=== PATIENT | male | born 1965 | race Caucasian/White ===

== ENCOUNTER 2016-10-16 01:04 | Emergency (ER) | payer OTHER ==
[~2016-10-16] VITALS: Ht 182.8 cm; Wt 113.4 kg
[2016-10-16 01:11] VITALS: BP 171/119
[2016-10-16 01:38] LABS: BASO % 0.4 % (0.0-1.0); EOS % 0.4 % (1.0-4.0); HEMATOCRIT 50.5 % (42.0-52.0); HEMOGLOBIN 17.7 g/dl (14.0-18.0); LYMPH # 2.1 10*3/uL (1.3-4.4); MEAN CELL VOLUME 89.9 fl (80.0-94.0); MEAN CORPUSCULAR HGB 31.5 pg (27.0-31.0); MEAN PLATELET VOLUME 11.1 fl (9.6-12.3); MONO # 0.5 10*3/uL (0.1-1.0); MONO % 7.2 % (3.0-9.0); NEUT # 4.7 10*3/uL (2.3-7.9); NEUT % 63.7 % (47.0-73.0); PLATELET COUNT AUTOMATED 82 10*3/uL (130-400); RED BLOOD COUNT 5.62 10*6/uL (4.50-5.90); RED CELL DISTRI WIDTH 13.6 % (0-14.5); WHITE BLOOD COUNT 7.4 10*3/uL (4.8-10.8)
[2016-10-16 01:49] LABS: ACT PARTIAL THROMBO TIME 26.3 SECONDS (20.8-31.5)
[2016-10-16 02:01] LABS: ALBUMIN 3.8 gm/dl (3.1-4.5); ALKALINE PHOSPHATASE 127 U/L (45-117); BUN 7 mg/dl (7-24); CHLORIDE 103 mmol/L (98-107); CREATININE 1.17 mg/dL (0.70-1.30); LIPASE 430 U/L (73-393); MAGNESIUM 2.3 mg/dL (1.5-2.1); POTASSIUM 3.9 mmol/L (3.5-5.1); SGOT/AST 257 IU/L (3-35); SGPT/ALT 286 U/L (12-78); SODIUM 135 mmol/L (136-145); TOTAL PROTEIN 8.4 gm/dL (6.4-8.2)
[2016-10-16 02:02] LABS: TROPONIN I < 0.015 ng/ml (<0.045)
== END 2016-10-16 03:18 | disposition admitted as inpatient to this hospital (09) ==
LOC: ED 01:04 → EDHOLD 02:16 → ED 02:16
PROVIDERS: Student in an Organized Health Care Education/Training Program
DX: F10.129 Alcohol abuse with intoxication, unspecified (principal); F32.9 Major depressive disorder, single episode, unspecified; F17.200 Nicotine dependence, unspecified, uncomplicated; Z88.8 Allergy status to other drugs, medicaments and biological substances

== ENCOUNTER 2016-10-16 02:21 | Inpatient (IN) | payer OTHER ==
[~2016-10-16] VITALS: Ht 182.9 cm; Wt 116.4 kg
[2016-10-16] VITALS (7 sets, daily range): BP systolic 114–153; BP diastolic 77–100
--- NOTE | ~2016-10-16 | PR ---
[place], [place] PROGRESS NOTE NAME: NATHALY CHOWDARY UNIT #: [id number] ROOM: 523 DOCTOR: REMI DOE MD BIRTHDATE: [birth year] DOS: 10/17/2016 REASON FOR VISIT: Atrial fibrillation. HISTORY OF PRESENT ILLNESS: The patient is alert, oriented. Denies any chest pain or shortness of breath. No palpitation, no dizziness. No fever or chills. No PND or orthopnea. No nausea, vomiting, diarrhea. No neurologic symptoms. No genitourinary symptoms. REVIEW OF SYSTEMS: Review of 8 systems negative except as mentioned above. RHYTHM STRIPS: The patient in atrial fibrillation with controlled ventricular rate. PHYSICAL EXAMINATION: VITAL SIGNS: Blood pressure 136/84, pulse 80, respiratory rate 14. GENERAL: Alert, comfortable, in no acute distress. HEENT: Pupils are round and equal. No jaundice. Tongue was moist and pharynx was clear. NECK: Supple. No distended neck veins. No carotid bruits. CHEST: Symmetrical, nontender. LUNGS: Clear to auscultation bilaterally. HEART: Irregularly irregular. No S3. Grade 1/6 systolic murmur. ABDOMEN: Benign, nontender. Bowel sounds normal. EXTREMITIES: Showed no edema. Distal pulses are palpable. SKIN: Warm and dry. No cyanosis, no clubbing. NEUROLOGIC: The patient is alert, oriented. No focal neurologic deficit. RECTAL: Deferred. GENITOURINARY: Deferred. MEDICATIONS AND ALLERGIES: Reviewed. IMPRESSION: 1. Atrial fibrillation, rate control, the patient is high risk for bleeding at this time. 2. Hypertension, stable. 3. Mild valvular heart disease. 4. Tobacco use. The patient counseled to quit smoking. 5. Alcohol use. The patient counseled to quit drinking. RECOMMENDATIONS: 1. Blood pressure and heart rate are stable. 2. Continue current medications. 3. He can be transferred from ICU from the cardiac standpoint. 4. No further cardiac testing at this time. The 2D echo is pending at this time. [place], [place] PROGRESS NOTE NAME: NATHALY CHOWDARY UNIT #: [id number] ROOM: 523 DOCTOR: REMI DOE MD BIRTHDATE: [birth year] REMI DOE MD CM:CLARISSA [id number] REMI DOE MD 10/18/16 1416 interface
--- NOTE | ~2016-10-16 | PR ---
[place], [place] PROGRESS NOTE NAME: NATHALY CHOWDARY UNIT #: [id number] ROOM: 523 DOCTOR: REMI DOE MD BIRTHDATE: [birth year] DOS: 10/18/2016 CARDIOLOGY FOLLOWUP VISIT NOTE REASON FOR VISIT: Atrial fibrillation. SUBJECTIVE: The patient is alert. Denies any chest pain, no dizziness, no PND. He slept good last night. No orthopnea, no fever, no cough. REVIEW OF SYSTEMS: Review of the 8 systems negative except as mentioned above. RHYTHM STRIPS: Patient was not on a monitor bed. PHYSICAL EXAMINATION: VITAL SIGNS: Blood pressure 130/55, pulse 78, respiratory rate 20. GENERAL: Alert, comfortable, in no acute distress. HEENT: Pupils are round and equal. No jaundice. NECK: Supple. No distended neck veins, no carotid bruit. CHEST: Symmetrical, nontender. LUNGS: Clear to auscultation bilaterally. HEART: Irregularly irregular. ABDOMEN: Benign, nontender. Bowel sounds normal. EXTREMITIES: Showed trace edema. SKIN: Warm and dry. No cyanosis, no clubbing. NEUROLOGIC: The patient is alert, oriented. No focal neurologic deficit. RECTAL: Deferred. GENITOURINARY: Deferred. IMPRESSION: 1. Paroxysmal atrial fibrillation, controlled ventricular rate, CHADS2-VASc score of 1, high risk of bleeding. 2. Alcohol use. The patient counseled to quit smoking. 3. Obesity. The patient counseled for diet, exercise and weight loss. RECOMMENDATIONS: 1. Continue current medications. 2. Cardiology will see as needed. 3. There is no family at bedside at the time of my examination. [place], [place] PROGRESS NOTE NAME: NATHALY CHOWDARY UNIT #: [id number] ROOM: 523 DOCTOR: REMI DOE MD BIRTHDATE: [birth year] REMI DOE MD CM:PNTRANS [id number] REMI DOE MD 10/18/16 2129 interface
--- NOTE | ~2016-10-16 | CON ---
[place], [place] REPORT OF CONSULTATION NAME: NATHALY CHOWDARY UNIT #: [id number] ROOM: 523 DOCTOR: FAY FORD BIRTHDATE: [birth year] DOS: 10/17/2016 HISTORY OF PRESENT ILLNESS: This is a 51-year-old male who presented to [facility] from home with his sister. He had consumed a large amount of alcohol that evening, has history of alcoholism. Drinks approximately a 6-pack of 12-ounce beers every evening. He noted chest pains, tremors, hiccups, was admitted for alcoholism and to rule out anything other medical as far as an ME. PAST MEDICAL HISTORY: Alcoholism, anxiety, hypertension, major depressive disorder, PTSD, tobacco abuse, AFib. MENTAL STATUS: He is alert and oriented to person, place, approximate time. Mood is little bit depressed. Affect appropriate. No overt signs of auditory or visual hallucinations, delusions, paranoia, payton or hypomania. The patient states that approximately 5 months ago his psychiatrist cut him off his Cymbalta and his Klonopin, but he could not tell me why. He stated that he felt better from a depression standpoint on the Cymbalta and that he told the nurses last night that he took 60 mg, he told me he took 120 mg, which is above the recommended dosage. I did start the Cymbalta back currently at 30 mg. I added at bedtime, it is my preference; but he prefers a.m. dosing, so I will switch it to that. The plan would be then if he tolerates it over the next week, we can increase it to 60. He asked me for Klonopin and Ativan. I advised him, no not at this time. He says he takes it for PTSD. Current research shows that benzos are not long-term choice for PTSD. It actually locks them into numbness and does not help them deal with their emotions so associated with this. I did ask who prescribed this, [facility]. I advised him that I would be reaching out to them to get confrontation of the medications, and at that point in time, he switched to a different doctor's name, I would be reaching out to him, he stated that he is not really sure who prescribed it for him, so there is a little bit concern with that, but I will be happy to give him the benefit of doubt to see if we can clarify what is going on. I did ask the nurses run a ____ for me last night and they did state that the last time he had this medication filled was 5 months ago. FINAL DIAGNOSIS: I am going to go with major depressive disorder at this point in time, maybe generalized anxiety. PLAN: I started him on Cymbalta last night at 30 mg at bedtime. I will change that to q.a.m. This will help with depression and anxiety. As long as the patient tolerates it, we can titrate this up to 60 mg. I do believe he needs to get into some type of program as far as with his alcohol abuse, I think he is numbing himself and not dealing with his issues, which is causing his depression and his anxiety to be even worse, some cognitive behavioral therapy would probably benefit him if he would participate. [place], [place] REPORT OF CONSULTATION NAME: YORDYILIRNATHALY UNIT #: [id number] ROOM: 523 DOCTOR: FAY FORD BIRTHDATE: [birth year] FREDDY FORD CNP CM:CONSTR:REPORT OF CONSULTATION 1121 10/17/16 2136 interface
--- NOTE | ~2016-10-16 | PR ---
[place], [place] PROGRESS NOTE NAME: NATHALY CHOWDARY UNIT #: [id number] ROOM: 523 DOCTOR: REMI DOE MD BIRTHDATE: [birth year] DOS: 10/19/2016 REASON FOR VISIT: Atrial fibrillation. HISTORY OF PRESENT ILLNESS: The patient is feeling better. Denies any chest pain, dizziness or palpitations. Did not sleep good last night; hence, appears little bit tired. He is anticipating going home today. Denies any palpitations. No PND, no orthopnea, no cough, no fever and chills. REVIEW OF SYSTEMS: Review of the 8 systems negative except as mentioned above. RHYTHM STRIPS: The patient had atrial fibrillation, controlled ventricular rate. PHYSICAL EXAMINATION: VITAL SIGNS: Blood pressure 91/65, pulse 69, respiratory rate 20. GENERAL: Alert, comfortable, in no acute distress. HEENT: Pupils round, equal. No jaundice. Tongue was moist and pharynx was clear. NECK: Supple, no distended neck veins, no carotid bruit. CHEST: Symmetrical, nontender. LUNGS: Clear to auscultation bilaterally. HEART: Irregularly irregular. ABDOMEN: Obese, nontender. Bowel sounds normal. EXTREMITIES: Showed trace edema. Distal pulses are palpable. SKIN: Warm and dry. No cyanosis, no clubbing. NEUROLOGIC: The patient is alert, oriented. No focal neurologic deficit. RECTAL: Deferred. Medications and labs reviewed as available. IMPRESSION: 1. Paroxysmal atrial fibrillation, controlled ventricular rate. The patient is high risk for long-term anticoagulation at this time due to his alcohol use. 2. Tobacco smoking. 3. Alcohol abuse. 4. Non-morbid obesity. RECOMMENDATIONS: 1. Continue current medications. 2. Watch his heart rate and blood pressures. 3. He is anticipating discharge today and we will follow him in our cardiology clinic in 2-4 weeks. 4. Risk factor modification to quit smoking, diet, exercise and weight loss as well as to quit drinking were discussed. 5. There is no family at bedside at the time of my examination. [place], [place] PROGRESS NOTE NAME: NATHALY CHOWDARY UNIT #: [id number] ROOM: 523 DOCTOR: REMI DOE MD BIRTHDATE: [birth year] REMI DOE MD CM:CLARISSA [id number] REMI DOE MD 10/20/16 0137 interface
--- NOTE | 2016-10-16 03:05 | NUR ---
A 51 YEAR OLD MALE admitted to ICCU, under the services of TIARA Jules DO with a diagnosis of AFIB, DT'S. Chief complaint is PT WANTS TO "DETOX". Patient arrived via stretcher from ER. Monitor applied. Initial assessment completed. Vital signs taken and recorded. TIARA JULES DO notified of admission to the unit. Orders received. See assessment for past medical history, medications and allergies. Patient and/or family oriented to unit. [facility] visitation policy reviewed. Clothing/patient valuable form completed. VIOLA MERA
--- NOTE | 2016-10-16 04:00 | NUR ---
PATIENT REFUSED TEDS.
--- NOTE | 2016-10-16 04:28 | NUR ---
PATIENT HAS NOTICABLE TREMORS, STATES HE FEELS RESTLESS AND WOULD LIKE TO GET SOME REST. ATIVAN WAS GIVEN. WILL MONITOR AND REASSESS.
--- NOTE | 2016-10-16 05:36 | NUR ---
ARIELA AMEZQUITAX PER DR. MOORE
--- NOTE | 2016-10-16 06:24 | NUR ---
DR. PATTERSON CONSULTED, NEW ORDERS RECEIVED.
--- NOTE | 2016-10-16 09:44 | NUR ---
AND HERE AT BEDSIDE. PATIENT IS HAVING HICCUPS THAT IS CAUSING HIM TO HAVE DRY HEAVES. NEW ORDER RECEIVED AT THIS TIME FOR ONE TIME DOSE OF IV REGLAN.
--- NOTE | 2016-10-16 09:53 | NUR ---
PATIENT RESTLESS, VISIBLE TREMORING AND IS FEELING ANXIOUS. MEDICATED WITH ATIVAN 1MG IV PER PRN ORDER. ALSO MEDICATED WITH ONE TIME DOSE OF IV REGLAN PER ORDER FOR NAUSEA/VOMITING. WILL CONTINUE TO MONITOR.
--- NOTE | 2016-10-16 11:25 | NUR ---
NOTIFIED FREDDY FORD CNP OF NEW CONSULT ORDER FOR . NEW ORDER RECEIVED FOR CYMBALTA 30MG HS.
--- NOTE | 2016-10-16 14:19 | NUR ---
PATIENT C/O HEADACHE AND FEELING "ANSY". MEDICATED WITH TYLENOL AND VISTARIL PER PRN ORDERS. WILL CONTINUE TO MONITOR.
--- NOTE | 2016-10-16 14:34 | NUR ---
PATIENT DRY HEAVING/EMESIS AGAIN AT THIS TIME. MEDICATED WITH ZOFRAN PER PRN ORDER. WILL CONTINUE TO MONITOR.
--- NOTE | 2016-10-16 19:08 | NUR ---
24 HR chart check completed.
--- NOTE | 2016-10-16 19:44 | NUR ---
PATIENT VERY RESTLESS, NOTICABLE TREMORS, PATIENT ASKING HOW LONG HE IS GOING TO BE HERE. PATIENT ASKED FOR ATIVAN, AND SOMETHING TO HELP HIM SLEEP TONIGHT. ATIVAN GIVEN. WILL CHECK ON SLEEPING PILL. WILL CONTINUE TO MONITOR AND REASSESS.
--- NOTE | 2016-10-16 20:44 | NUR ---
PATIENT STILL FEELING RESTLESS, ASKED FOR THE SLEEPING PILL TO HELP. ATIVAN NOT EFFECTIVE.
--- NOTE | 2016-10-16 21:09 | NUR ---
RESTORIL GIVEN TO HELP WITH SLEEP. WILL REASSESS.
--- NOTE | 2016-10-17 00:31 | NUR ---
PATIENT DRY HEAVING, RESTLESS, FEELING ANXIOUS. ZOFRAN AND ATIVAN GIVEN. WILL REASSESS,
--- NOTE | 2016-10-17 01:30 | NUR ---
PATIENT HAS NO MORE DRY HEAVING, ZOFRAN EFFECTIVE. PATIENT CALM AT THIS TIME. ATIVAN EFFECTIVE FOR A SHORT TIME.
[2016-10-17 03:57] VITALS: BP 142/98
[2016-10-17 05:57] LABS: BASO % 0.6 % (0.0-1.0); EOS # 0.1 10*3/uL (0.0-0.4); EOS % 1.2 % (1.0-4.0); HEMATOCRIT 44.9 % (42.0-52.0); LYMPH # 1.5 10*3/uL (1.3-4.4); LYMPH % 28.7 % (27.0-41.0); MEAN CORPUSCULAR HGB 31.8 pg (27.0-31.0); MEAN CORPUSCULAR HGB CONC 33.9 g/dl (33.0-37.0); MEAN PLATELET VOLUME 11.5 fl (9.6-12.3); MONO # 0.4 10*3/uL (0.1-1.0); NEUT # 3.1 10*3/uL (2.3-7.9); NEUT % 61.1 % (47.0-73.0); RED BLOOD COUNT 4.78 10*6/uL (4.50-5.90); RED CELL DISTRI WIDTH 13.7 % (0-14.5); WHITE BLOOD COUNT 5.1 10*3/uL (4.8-10.8)
[2016-10-17 05:58] LABS: HEMOGLOBIN 15.2 g/dl (14.0-18.0); MEAN CELL VOLUME 93.9 fl (80.0-94.0); PLATELET COUNT AUTOMATED 51 10*3/uL (130-400)
[2016-10-17 06:10] LABS: ALBUMIN 3.2 gm/dl (3.1-4.5); BUN 9 mg/dl (7-24); CHLORIDE 102 mmol/L (98-107); CHOLESTEROL 135 mg/dL (<200); CREATININE 0.91 mg/dL (0.70-1.30); PHOSPHOROUS 2.3 mg/dL (2.5-4.9); POTASSIUM 3.8 mmol/L (3.5-5.1); SGOT/AST 160 IU/L (3-35); SGPT/ALT 192 U/L (12-78); SODIUM 137 mmol/L (136-145); TOTAL PROTEIN 7.4 gm/dL (6.4-8.2); TRIGLYCERIDES 73 mg/dl (<150); VLDL CHOLESTEROL 15 mg/dL (6-40)
[2016-10-17 06:12] LABS: ALKALINE PHOSPHATASE 108 U/L (45-117); HDL CHOLESTEROL 61 mg/dl (40-60); LDL CHOLESTEROL 59 mg/dL (9-159)
[2016-10-17 06:18] LABS: INTERNATIONAL NORM RATIO 1.1 (2.0-3.5)
[2016-10-17 08:00] VITALS: BP 136/84; BP 143/107
[2016-10-17 12:00] VITALS: BP 140/89
[2016-10-17 16:00] VITALS: BP 156/94
--- NOTE | 2016-10-17 18:47 | NUR ---
PT REQUESTED AND GIVEN IV ATIVAN FOR C/O AGITATION AND ANXIETY. WILL MONITOR
[2016-10-17 20:20] VITALS: BP 125/90
--- NOTE | 2016-10-17 20:30 | NUR ---
PATIENT FELL WHILE IN THE BATHROOM. HE STATED THAT HE WAS ON THE TOILET WHEN HE BENT DOWN TO PICK SOMETHING UP AND HIS FEET SLIPPED OUT FROMUNDER HIM. THE PATIENT DID HAVE A MODERATE NOSE BLEED WHICH HAS STOPPED. THE PATIENT HAS NO SWELLING NOTED TO THE FACE AND IS A/OX3. NO SLURRED SPECH NOTED. NO CONCERNS AT THIS TIME.
--- NOTE | 2016-10-17 21:05 | NUR ---
PT. MOVED TO ROOM 523 TO KEEP CLOSER MONITORING, WITH BELONGINGS. NURSING FINGERNAIL FORMER PATITO GUTIERREZ RN WITH MADE AWARE OF PT. FALLING AND MOVING TO NEW ROOM.
--- NOTE | 2016-10-17 21:29 | NUR ---
DR. MARIEE WAS CALLED AND NOTIFIED OF FALL. HE ORDERED A CT FOR THE HEAD AND FACE BUT PATIENT REFUSED CT'S. NO CONCERNS AT THIS TIME.
--- NOTE | 2016-10-17 22:00 | NUR ---
PT. ALERT AND ORIENTED. NO NOSE BLEED AND PT. REFUSED TO HAVE ANY X-RAYS/CT SCAN DONE. NURSING COLLECTIONS ATTORNEY AND DR. VALLE AWARE.
[2016-10-18] VITALS: BP 122/85
[2016-10-18 07:08] LABS: ALBUMIN 3.1 gm/dl (3.1-4.5); BUN 15 mg/dl (7-24); CHLORIDE 99 mmol/L (98-107); CREATININE 1.04 mg/dL (0.70-1.30); POTASSIUM 3.8 mmol/L (3.5-5.1); SGOT/AST 145 IU/L (3-35); SGPT/ALT 160 U/L (12-78); SODIUM 137 mmol/L (136-145); TOTAL PROTEIN 7.2 gm/dL (6.4-8.2)
[2016-10-18 07:09] LABS: ALKALINE PHOSPHATASE 104 U/L (45-117)
[2016-10-18 08:00] VITALS: BP 130/85
--- NOTE | 2016-10-18 08:10 | NUR ---
PT REQUESTED AND GIVEN ATIVAN FOR C/O ANXIETY. WILL MONITOR
--- NOTE | 2016-10-18 09:22 | NUR ---
PT UP STUMBLING TO DOORWWAY. PT REDIRECTED TO BED. TOLD PT THAT HE JUST HAD IV ATIVAN AND SHOUDL LAY DOWN FOR A WHILE. WILL MONITOR . CALL LIGHT WITHIN REACH
--- NOTE | 2016-10-18 10:48 | NUR ---
PT RESTING IN BED, EYES CLOSED. ATIVAN APPEARS EFFECTIVE, WILL MONITOR
[2016-10-18 12:00] VITALS: BP 127/74
--- NOTE | 2016-10-18 13:45 | NUR ---
pt medicated with vistaril for c/o anxiety, will monitor
--- NOTE | 2016-10-18 14:55 | NUR ---
PT STATES THAT VISTARIL IS EFFECTIVE, . WILL MONITOR . SISTER AT BEDSIDE
[2016-10-18 16:00] VITALS: BP 140/85
[2016-10-18 20:00] VITALS: BP 108/83
--- NOTE | 2016-10-18 21:48 | NUR ---
PATIENT LAYING IN BED CALL LIGHT IN REACH, PATIENT HAS NO COMPLAINT AT THIS TIME/
[2016-10-19] VITALS: BP 134/88
[2016-10-19 08:00] VITALS: BP 105/75
--- NOTE | 2016-10-19 08:00 | NUR ---
PT RESTING IN BED, EYES CLOSED. NO DISTRESS NOTED, WILL MONITOR
[2016-10-19 12:00] VITALS: BP 91/65
[2016-10-19] MEDS ORDERED: DULOXETINE HCL30 MG PO (12:23)
[2016-10-19] MEDS ORDERED: METOPROLOL SUCC25 M2 PO (12:23)
--- NOTE | 2016-10-19 12:28 | NUR ---
PT MEDICATED WITH VISTARIL FOR ANXIETY, WILL MONITOR
--- NOTE | 2016-10-19 14:08 | NUR ---
Discharge instructions reviewed with patient/family. Patient receptive and verbalizes understanding. Follow-up care arranged. Written instructions given to patient/family. MANJIT GIRON
== END 2016-10-19 14:08 | disposition home or self-care (01) | DRG 309 ==
LOC: ICCU 02:21 → 5E 10-17 13:47
PROVIDERS: Family Medicine; Student in an Organized Health Care Education/Training Program; ADMIT Internal Medicine
DX: I48.0 Paroxysmal atrial fibrillation (principal); F10.231 Alcohol dependence with withdrawal delirium; E87.2 Acidosis; I38 Endocarditis, valve unspecified; D69.6 Thrombocytopenia, unspecified; E87.1 Hypo-osmolality and hyponatremia; F33.9 Major depressive disorder, recurrent, unspecified; R74.0 Nonspecific elevation of levels of transaminase and lactic acid dehydrogenase [LDH]; E83.41 Hypermagnesemia; R73.9 Hyperglycemia, unspecified; Y90.9 Presence of alcohol in blood, level not specified; F43.10 Post-traumatic stress disorder, unspecified; I10 Essential (primary) hypertension; Z96.643 Presence of artificial hip joint, bilateral; Z96.659 Presence of unspecified artificial knee joint; F17.210 Nicotine dependence, cigarettes, uncomplicated; E66.8 Other obesity; R63.4 Abnormal weight loss; F41.1 Generalized anxiety disorder; M54.5 Low back pain; G89.29 Other chronic pain; Z81.1 Family history of alcohol abuse and dependence; Z88.6 Allergy status to analgesic agent; Z82.49 Family history of ischemic heart disease and other diseases of the circulatory system; Z68.34 Body mass index [BMI] 34.0-34.9, adult